=== PATIENT | male | born 1970 | race Caucasian/White ===

== ENCOUNTER → 2024-03-25 06:24 | Day surgery (SDC) | payer OTHER, SELFPAY | LOC: GI 06:24 | PROVIDERS: ATTENDING PHYSICIAN Internal Medicine Gastroenterology | DX: Z12.11 Encounter for screening for malignant neoplasm of colon (principal); Z83.719 Family history of colon polyps, unspecified; K64.8 Other hemorrhoids; K63.5 Polyp of colon; D12.2 Benign neoplasm of ascending colon | CPT/HCPCS: 45385; 88305 ==

== ENCOUNTER 2024-05-03 10:37 | Emergency (ER) | payer OTHER, SELFPAY ==
[2024-05-03 10:44] VITALS: BMI 25.5
--- NOTE | 2024-05-03 10:56 | ED.GENMED ---
History of Present Illness
General
Chief Complaint: Fainting/Passed Out
Source: patient
Exam Limitations: none
Time Seen by Provider: 05/03/24 10:39
Travel History
Have you had any contact with someone who has COVID-19?: No
Do you have any symptoms of coronavirus? Fever > 100 degrees, chills, cough, shortness of breath, sore throat, loss of taste or smell, muscle aches, or headache?: No
History of Present Illness
History of Present Illness:
53-year-old male presents for evaluation of right hip pain passing out last night he was doing some yard work strained cutting thick van heard a pop in his right hip was having some pain since then will he is able to ambulate today he stood up felt
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
Past History
Past History
ED Past Medical History: HTN
ED Past Surgical History: Orthopedic (Lumbar laminectomy), Urological and Other (Pilonidal cyst removal)
Social History
Tobacco: Former smoker
Alcohol: Occasional
Drug: None
Personal:
Living: with family
Employment: Employed
Family History
Family History: Other (Brother with kidney disease)
Review of Systems
Review of Systems
All Other Systems: Not applicable
Constitutional: Denies fever or fatigue
EENT: Reports no symptoms
Respiratory: Reports no symptoms
Cardiac: Reports syncope
ABD/GI: Reports no symptoms
Musculoskeletal: Reports joint pain
Neurological: Reports no symptoms
Psychiatric: Reports no symptoms
Phy Exam
Physical Exam
Physical Exam:
Physical Exam
General: no apparent distress, not acutely ill
Neck: No tongue bite, mild paraspinal pain in the cervical spine region
Heart: s1/s2 regular rate and rhythm, no murmur. equal radial pulses.
Lungs: no acute respiratory distress. clear bilaterally
Abdomen: Regular
Neuro: alert and oriented. no focal neurological deficits
Skin: no rash
Psychiatric: well kept. interactive and cooperative
Extremities: Mild pain with range of motion of the right hip, legs are equal length, no inguinal hernia appreciated
Course
Orders/Labs/Results
Orders:
Orders
05/03/24 10:44
Electrocardiogram (*1) Urgent
Reason for Study: Chest Pain
Cardiac Monitoring- Treatment ONCE
EKG- Treatment ONCE
IV Insert/Care/Rem.- Treatment PRN
05/03/24 10:46
Complete Blood Count/With Diff Urgent
Comprehensive Metabolic Panel Urgent
05/03/24 10:53
CT Cervical Spine W/o Iv Contr Urgent
Comment:
Reason For Exam: fall
CT Head W/o Iv Contrast Urgent
Comment:
Reason For Exam: fall
Cardiac Monitoring- Treatment ONCE
0.9% Sodium Chloride 1000 ml [Nss] 1,000 ml IV BOLUS
CR Hip - RT w/wo Pel 2-3 Vw* Urgent
Comment: include pelvis
Reason For Exam: pain fall twist
Include a pelvis x-ray?: Yes
05/03/24 10:54
HYDROmorphone [Dilaudid] 0.5 mg IV NOW STA
Abnormal Lab Results
05/03/24
10:46
RBC 4.19 L 10^6/uL
(4.70-6.10)
Hgb 11.9 L g/dL
(13.0-18.0)
Hct 35.5 L %
(39.0-52.0)
Chloride 108 H mmol/L
(98-107)
BUN 28 H mg/dl
(9-20)
Creatinine 1.5 H mg/dL
(0.7-1.3)
Glucose 118 H mg/dl
(70-99)
05/03/24 10:46
05/03/24 10:46
Vital Signs
Initial and Last Documented VS:
Initial Vital Signs
Temp Pulse Resp Pulse Ox
97.6 F 47 20 100
05/03/24 10:38 05/03/24 10:38 05/03/24 10:38 05/03/24 10:38
Last Documented Vital Signs
Temp Pulse Resp BP Pulse Ox
97.6 F 49 13 130/73 97
05/03/24 10:38 05/03/24 12:15 05/03/24 12:15 05/03/24 12:00 05/03/24 12:15
MDM/Problems Addressed
Differential Diagnosis Includes:
Vasovagal soft tissue injury to the hip pelvic fracture doubt dislocation or hip fracture
MDM/Problems Addressed:
Syncope right hip pain
Chronic conditions affecting care: HTN
Acute Exacerbation and/or Progression of Chronic Illness: HTN
*Radiology
Radiology exam reviewed: preliminary read by ED provider
*Pulse Oximetry
Patient hypoxic: no
*EKG
Interpreted by ED Provider?: Yes
Interpretation: normal
Comparison EKG: no comparison EKG present
Heart Rate: 60
Rate: normal
Rhythm: sinus
Ischemia: no ischemia
*Logistics Support Interpretation
Rate: normal
Interpretation: normal
Heart Rate: 60
Rhythm: sinus
*Critical Care Note
Total Time (30-74mins, 75-104mins- exclusive of procedures): Not Applicable
Update Note
Update Note:
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
try to get him comfortable obviously no NSAIDs, his creatinine is actually improved, I will refer him to see orthopedics
Nursing was able to get him a walker he was able to ambulate without much difficulty
ED Attending Note
-
Portions of this chart may have been created with voice recognition software.� Occasional wrong word or��sound alike� substitutions may have occurred due to the inherent limitations of voice recognition software.
Discharge Plan
Departure
Patient Disposition: Home (Routine Discharge)
Date of Disposition: 05/03/24
Time of Disposition: 13:03
Patient with high blood pressure during this ER visit?: No
Discharge Problem:
Acute hip pain, Syncope and collapse
Instructions: Hip pain in adults, Fainting, Adult ED
Prescriptions:
New
oxycodone 5 mg tablet
5 mg PO Q6H PRN (Reason: Pain) Qty: 14 0RF
No Action
multivitamin [Daily Multiple] 1 EACH tablet
1 ea PO BID
flaxseed oil 1,000 MG capsule
1,000 mg PO BID
garlic 1 CAP capsule
1 cap PO BID
glucosam-chond zt-ttxtia-xv ac 1 EACH capsule
1 ea PO BID
Co Q-10
BID
oxycodone-acetaminophen [Percocet] 1 EACH tablet
1 ea PO Q6HPRN PRN (Reason: pain) Qty: 10 0RF
cephalexin 500 MG capsule
500 mg PO QID Qty: 40 0RF
methylprednisolone [Medrol (Joel)] 4 mg tablets,dose pack
See Rx Instructions .ROUTE .COMPLEX Qty: 21 0RF
Rx Instructions:
orally per package directions
Referrals:
Lashonda Lange CRNP [Family Provider] -
Jose Bailon MD [Active] - Next open appointment
Interventions
Interventions:
*Risk Screen - Suicide Last Done: 05/03/24 10:38
*General Assessment Last Done: 05/03/24 10:38
*Neglect/Abuse Screening Last Done: 05/03/24 10:38
ED- Fall Risk Assessment Last Done: 05/03/24 11:04
*ED COVID-19 Vaccine History Last Done: 05/03/24 11:04
ED- Cardiac Assessment Last Done: 05/03/24 11:04
ED- Neurological Assessment Last Done: 05/03/24 11:04
Discharge Date and Time
Print Language: GHANAIAN
[2024-05-03 10:57] LABS: % Eosinophils 1.3 % (0-6); % Immature Granulocytes 0.3 % (0-0.5); % Lymphocytes 23.9 % (20.5-51.1); % Monocytes 8.2 % (1.7-9.3); % Neutrophils 65.3 % (42.2-75.2); Absolute Basophils 0.1 10^3/uL (0-0.2); Absolute Eosinophils 0.1 10^3/uL (0-0.7); Absolute Lymphocytes 1.5 10^3/uL (1.2-3.4); Absolute Monocytes 0.5 10^3/uL (0.1-0.6); Absolute Neutrophils 4.1 10^3/uL (1.4-6.5); Hematocrit 35.5 % (39.0-52.0); Hemoglobin 11.9 g/dL (13.0-18.0); Mean Corp Hgb Conc. 33.5 g/dL (33.0-37.0); Mean Corpuscular Hgb 28.4 pg (27.0-31.0); Mean Corpuscular Volume 84.7 fL (80.0-94.0); Mean Platelet Volume 9.7 fL (7.4-10.4); Nucleated Red Blood Cells % 0 % (-); Platelet Count 191 10^3/uL (130-400); Red Blood Cell Count 4.19 10^6/uL (4.70-6.10); Red Cell Dist. Width 13.4 % (11.5-14.5); White Blood Cell Count 6.2 10^3/uL (4.8-10.8)
[2024-05-03] MEDS: DILAUDID 0.5 MG IV (10:59)
[2024-05-03] MEDS: NSS 1000 IV (10:59)
[2024-05-03 11:00] VITALS: BP 125/70
[2024-05-03 11:08] LABS: ALT (SGPT) 19 U/L (0-50); AST (SGOT) 28 U/L (17-59); Albumin 3.8 g/dl (3.5-5.0); Alkaline Phosphatase 69 U/L (38-126); Blood Urea Nitrogen 28 mg/dl (9-20); Calcium 8.6 mg/dl (8.4-10.2); Carbon Dioxide 23 mmol/L (22-30); Chloride 108 mmol/L (98-107); Estimated Creatinine Clearance 59 ml/min; Glucose 118 mg/dl (70-99); Potassium 4.1 mmol/L (3.5-5.1); Sodium 140 mmol/L (135-145); Total Bilirubin 0.5 mg/dl (0.2-1.3); Total Protein 6.4 g/dl (6.3-8.2); eGFR 54.64
[2024-05-03 12:00] VITALS: BP 130/73
== END 2024-05-03 13:48 | disposition home or self-care (01) ==
LOC: EMR 10:37
PROVIDERS: EMERGENCY PHYSICIAN Emergency Medicine; FAMILY PHYSICIAN Nurse Practitioner
DX: R55 Syncope and collapse (principal); M25.551 Pain in right hip; W19.XXXA Unspecified fall, initial encounter; I10 Essential (primary) hypertension; Z87.891 Personal history of nicotine dependence
CPT/HCPCS: 99285; 96374; 96361; 70450; 72125; 73502; 80053; 85025; 93005

== ENCOUNTER → 2024-05-20 08:36 | Outpatient (REF) | payer OTHER, SELFPAY | LOC: RAD 08:36 | PROVIDERS: ATTENDING PHYSICIAN Nurse Practitioner | DX: R10.31 Right lower quadrant pain (principal) | CPT/HCPCS: 76882 ==

== ENCOUNTER → 2024-08-02 07:20 | Outpatient (REF) | payer OTHER, SELFPAY | LOC: HWRAD 07:20 | PROVIDERS: ATTENDING PHYSICIAN Nurse Practitioner | DX: T14.8XXA Other injury of unspecified body region, initial encounter (principal) | CPT/HCPCS: 76882 ==

== ENCOUNTER 2025-01-28 05:19 | Emergency (ER) | payer OTHER, SELFPAY ==
[2025-01-28 05:25] VITALS: BP 136/80
[2025-01-28 06:36] VITALS: BMI 26.7
--- NOTE | 2025-01-28 07:19 | ED.GENMED ---
History of Present Illness
General
Chief Complaint: Extremity Pain (non-traumatic)
Source: patient
Exam Limitations: none
Time Seen by Provider: 01/28/25 07:04
History of Present Illness
History of Present Illness:
54-year-old male presents with flulike symptoms over the past 3 days including low-grade fever and fatigue. Last evening after working out he developed pain in both arms with associated numbness into the fingers that radiated into his shoulder
blade. He now notes discomfort in the shoulder blade when he takes a deep breath. He states he recently drove back from [place]. He also stopped in [place] and was in the [employer] for extended period time in [place]. He denies a rash. Patient
has donated one of his kidneys in the past. He denies any specific chest pain. No nausea vomiting or cough. He has a history of hypertension. No other complaints at this time.
Past History
Past History
ED Past Medical History: HTN
ED Past Surgical History: Orthopedic (Lumbar laminectomy), Urological and Other (Pilonidal cyst removal)
Social History
Tobacco: Former smoker
Alcohol: Occasional
Drug: None
Personal:
Living: with family
Employment: Employed
Family History
Family History: Other (Brother with kidney disease)
Phy Exam
Physical Exam
Physical Exam:
General: Uncomfortable appearing male no acute respiratory distress
HEENT: Normocephalic atraumatic
Heart: Regular rate and rhythm
Lungs: Clear no wheeze
Vascular 2+ radial pulses bilaterally
Neurologic good strength to the upper extremities. Good sensation. No drift
Skin is warm no rash
Course
Orders/Labs/Results
Orders:
Orders
01/28/25 07:17
0.9% Sodium Chloride 1000 ml [Nss] 1,000 ml IV BOLUS
Dexamethasone Sod Phosphate [Decadron] 10 mg IV NOW STA
01/28/25 07:18
Electrocardiogram (*1) Urgent
Reason for Study: Chest Pain
EKG- Treatment ONCE
01/28/25 07:22
HYDROmorphone [Dilaudid] 0.5 mg IV NOW STA
01/28/25 07:50
CPK [Creatine Phosphokinase] Urgent
Complete Blood Count/With Diff Urgent
Comprehensive Metabolic Panel Urgent
D-Dimer Urgent
Lyme Progressive Urgent
01/28/25 08:35
CT Chest PE Study Urgent
Comment:
Reason For Exam: shoulder blade pain, elevated d-dimer
01/28/25 09:20
Troponin I Urgent
Abnormal Lab Results
01/28/25
07:50
WBC 4.6 L 10^3/uL
(4.8-10.8)
RBC 4.69 L 10^6/uL
(4.70-6.10)
Absolute Lymphs (auto) 1.0 L 10^3/uL
(1.2-3.4)
D-Dimer 1.40 H ug/mlFEU
(0.00-0.50)
BUN 23 H mg/dl
(9-20)
Glucose 127 H mg/dl
(70-99)
Creatine Kinase 241 H U/L
(55-170)
01/28/25 07:50
01/28/25 07:50
Vital Signs
Initial and Last Documented VS:
Initial Vital Signs
Temp Pulse BP Pulse Ox
98.4 F 76 136/80 100
01/28/25 05:25 01/28/25 05:25 01/28/25 05:25 01/28/25 05:25
Last Documented Vital Signs
Temp Pulse Resp BP Pulse Ox
98.4 F 56 18 141/87 95
01/28/25 05:25 01/28/25 09:45 01/28/25 09:45 01/28/25 09:00 01/28/25 09:45
MDM/Problems Addressed
Differential Diagnosis Includes:
Bilateral arm discomfort with shoulder blade discomfort. Differential could be musculoskeletal such as radiculopathy versus myalgias from viral illness versus Lyme. Given recent travel also somewhat at risk for PE given his symptoms also consider
dissection. Unfortunately patient has 1 kidney. Vital signs are stable. Will check labs including CPK D-dimer and Lyme study. Treat symptomatically EKG pending.
*Critical Care Note
Total Time (30-74mins, 75-104mins- exclusive of procedures): Not Applicable
Update Note
Update Note:
D-dimer was elevated at 1.4. Kidney function remained normal. Patient was hydrated and a PE study was performed which was negative for any acute process. Troponin undetectable. Patient is feeling somewhat better after interventions here. I
suspect potential radiculopathy as source discomfort. Will prescribe steroids and a limited supply of pain medication. He was advised follow-up otherwise
ED Attending Note
-
Portions of this chart may have been created with voice recognition software.� Occasional wrong word or��sound alike� substitutions may have occurred due to the inherent limitations of voice recognition software.
Discharge Plan
Departure
Patient Disposition: Home (Routine Discharge)
Date of Disposition: 01/28/25
Time of Disposition: 10:45
Patient with high blood pressure during this ER visit?: No
Discharge Problem:
Radiculopathy
Prescriptions:
New
prednisone 10 mg Tablet
See Rx Instructions .ROUTE .COMPLEX Qty: 30 0RF
Rx Instructions:
Take By Mouth:
40 mg daily x3 days, 30 mg daily x3 days,
20 mg daily x3 days, 10 mg daily x3 days.
oxycodone-acetaminophen [Percocet] 5-325 mg tablet
1 tab PO TID PRN (Reason: Pain) Qty: 10 0RF
No Action
atorvastatin 10 mg Tablet
10 mg PO DAILY
nifedipine 30 mg Tablet Extended Release
30 mg PO DAILY
alfuzosin 10 mg Tablet Extended Release 24 Hr
10 mg PO DAILY
tadalafil 5 mg Tablet
5 mg PO DAILY
Referrals:
Hossein Banuelos MD [Active] -
Elisha Deshpande DO [Family Provider] -
Activity Restrictions/Additional Instructions:
Stay hydrated. Continue with steroid and pain medicine peer return if worse otherwise follow-up with your doctor or back pain specialist
Interventions
Interventions:
*Risk Screen - Suicide Last Done: 01/28/25 05:25
*General Assessment Last Done: 01/28/25 08:49
*Neglect/Abuse Screening Last Done: 01/28/25 08:49
*ED- Fall Risk Assessment Last Done: 01/28/25 06:34
*ED COVID-19 Vaccine History Last Done: 01/28/25 06:37
ED-Skin Assessment Last Done: 01/28/25 06:34
ED-Peripheral Vascular Assessment Last Done: 01/28/25 06:36
ED-Musculoskeletal Assessment Last Done: 01/28/25 06:34
Discharge Date and Time
Print Language: CHILEAN
[2025-01-28] MEDS: DILAUDID 0.5 MG IV (07:48)
[2025-01-28] MEDS: DECADRON 10 MG IV (07:49)
[2025-01-28] MEDS: NSS 1000 IV (07:49)
[2025-01-28 07:53] VITALS: BP 134/93
[2025-01-28 08:00] VITALS: BP 139/87
[2025-01-28 08:24] LABS: Hemoglobin 13.4 g/dL (13.0-18.0); Mean Corp Hgb Conc. 33.5 g/dL (33.0-37.0); Mean Corpuscular Hgb 28.6 pg (27.0-31.0); Mean Corpuscular Volume 85.3 fL (80.0-94.0); Mean Platelet Volume 9.7 fL (7.4-10.4); Platelet Count 205 10^3/uL (130-400); Red Blood Cell Count 4.69 10^6/uL (4.70-6.10); Red Cell Dist. Width 12.9 % (11.5-14.5); White Blood Cell Count 4.6 10^3/uL (4.8-10.8)
[2025-01-28 08:26] LABS: ALT (SGPT) 31 U/L (0-50); AST (SGOT) 31 U/L (17-59); Albumin 4.1 g/dl (3.5-5.0); Alkaline Phosphatase 70 U/L (38-126); Blood Urea Nitrogen 23 mg/dl (9-20); Calcium 9.1 mg/dl (8.4-10.2); Carbon Dioxide 26 mmol/L (22-30); Chloride 99 mmol/L (98-107); Creatine Phosphokinase 241 U/L (55-170); Estimated Creatinine Clearance 73 ml/min; Glucose 127 mg/dl (70-99); Potassium 4.1 mmol/L (3.5-5.1); Sodium 135 mmol/L (135-145); Total Bilirubin 0.4 mg/dl (0.2-1.3); Total Protein 6.9 g/dl (6.3-8.2); eGFR > 60.00
[2025-01-28 08:55] LABS: % Basophils 0.6 % (0-2); % Eosinophils 1.5 % (0-6); % Immature Granulocytes 0.2 % (0-0.5); % Lymphocytes 22.1 % (20.5-51.1); % Monocytes 8.7 % (1.7-9.3); % Neutrophils 66.9 % (42.2-75.2); Absolute Eosinophils 0.1 10^3/uL (0-0.7); Absolute Monocytes 0.4 10^3/uL (0.1-0.6); Absolute Neutrophils 3.1 10^3/uL (1.4-6.5); Nucleated Red Blood Cells % 0 % (-)
[2025-01-28 09:00] VITALS: BP 141/87
[2025-01-28 10:19] LABS: Troponin I < 0.012 ng/ml
[2025-01-28 10:28] VITALS: BP 141/82
[2025-01-28 14:27] LABS: Lyme Antibody Screen, EIA Negative (Negative)
== END 2025-01-28 11:03 | disposition home or self-care (01) ==
LOC: EMR 05:19
PROVIDERS: Physician Assistant; EMERGENCY PHYSICIAN Emergency Medicine; FAMILY PHYSICIAN Internal Medicine
DX: M54.10 Radiculopathy, site unspecified (principal); R50.9 Fever, unspecified; R53.83 Other fatigue; M79.622 Pain in left upper arm; M79.621 Pain in right upper arm; M54.2 Cervicalgia; M25.512 Pain in left shoulder; M25.511 Pain in right shoulder; I10 Essential (primary) hypertension; Z87.891 Personal history of nicotine dependence; Z88.6 Allergy status to analgesic agent; Z88.5 Allergy status to narcotic agent
CPT/HCPCS: 99284; 96361; 96374; 96375; 71275; 80053; 82550; 84484; 85025; 85379; 86618; 93005; Q9967

== ENCOUNTER → 2025-02-03 11:04 | Outpatient (REF) | payer OTHER, SELFPAY | LOC: HWRAD 11:04 | PROVIDERS: ATTENDING PHYSICIAN Internal Medicine | DX: M25.511 Pain in right shoulder (principal); R29.898 Other symptoms and signs involving the musculoskeletal system | CPT/HCPCS: 72050 ==